=== PATIENT | male | born 1980 | race Caucasian/White ===

== ENCOUNTER → 2016-06-28 | Outpatient (CLI) | payer OTHER ==
--- NOTE | 2016-06-28 10:48 | DX ---
Chest, Two Views at 0 935 hours History: Testicular cancer, follow-up. Comparison: August 2015 Findings: Cardiac silhouette is within normal range. No definite pulmonary nodules No pneumonia, santa estive heart failure, pleural effusion, or pneumothorax. Impression: No acute pulmonary disease.
== END ==
LOC: FIMAGING 09:37
PROVIDERS: ATTEND Internal Medicine Hematology & Oncology
DX: Z03.89 Encounter for observation for other suspected diseases and conditions ruled out (principal); C62.90 Malignant neoplasm of unspecified testis, unspecified whether descended or undescended